=== PATIENT | male | born 1955 | race African-American/Black ===

== ENCOUNTER 2023-10-11 09:31 | Outpatient (CLI) | payer MEDICARE ==
[2023-10-11 11:43] LABS: Anion Gap 15 mmol/L (10-20); BUN (Urea Nitrogen) 8 mg/dL (8.4-25.7); Calc. Creatinine Clearance 0 mL/min (70-130); Carbon Dioxide 27 mmol/L (23-31); Chloride 98 mmol/L (98-107); Estimated GFR 95; Glucose 128 mg/dL (80-115); Sodium 136 mmol/L (136-145)
== END 2023-10-11 09:32 | disposition home or self-care (01) ==
LOC: CSHLAB 09:31
PROVIDERS: ATTEND Surgery
DX: Z01.818 Encounter for other preprocedural examination (principal); C18.4 Malignant neoplasm of transverse colon
CPT/HCPCS: 80048; 93005; 93010

== ENCOUNTER 2023-10-14 06:55 | Day surgery (SDC) | payer MEDICARE ==
[2023-10-11 10:22] VITALS: BMI 23.8
[2023-10-14] MEDS ORDERED: Bupivacaine PF 0.5% 30 ML VIAL ONE (07:18)
[2023-10-14] MEDS ORDERED: EPINEPHrine 1 MG/ML VIAL ONE (07:18)
[2023-10-14] MEDS ORDERED: Lidocaine 2% PF 5 ML VIAL ONE (08:04)
[2023-10-14] MEDS ORDERED: PROPOFOL 20 ML ONE (08:04)
[2023-10-14] MEDS ORDERED: Ondansetron PF 4 MG/2 ML Vial ONE (08:04)
[2023-10-14] MEDS ORDERED: Dexamethasone 4 mg/ml Vial ONE (08:04)
[2023-10-14] MEDS ORDERED: fentaNYL 50 mcg/mL 1 mL Vial ONE (08:05)
[2023-10-14] MEDS ORDERED: Clindamycin/D5W 600 mg/50 ml Premix Bag ONE (08:55)
[2023-10-14] MEDS ORDERED: Acetaminophen 325 MG TAB PO PRN (09:56)
[2023-10-14] MEDS ORDERED: traMADol HCl 50 MG TAB PO PRN (09:56)
== END 2023-10-14 10:20 | disposition home or self-care (01) ==
LOC: CSHSDC 06:55
PROVIDERS: ATTEND Surgery
PROC: 0JH60WZ Insertion of Totally Implantable Vascular Access Device into Chest Subcutaneous Tissue and Fascia, Open Approach (ICD-10-PCS; principal; 2023-10-14)
DX: C18.4 Malignant neoplasm of transverse colon (principal); J45.909 Unspecified asthma, uncomplicated; D64.9 Anemia, unspecified; F17.220 Nicotine dependence, chewing tobacco, uncomplicated; Z88.0 Allergy status to penicillin; Z88.5 Allergy status to narcotic agent; Z91.018 Allergy to other foods; Z79.52 Long term (current) use of systemic steroids
CPT/HCPCS: 36561; 71045; C1788; J0171; J3010; J0665; J1100; J1642; J2001; J2405; J2704; J3490